=== PATIENT | female | born 1965 | race Caucasian/White ===

== ENCOUNTER 2023-03-20 21:56 | Emergency (ER) | payer MEDICARE, OTHER ==
[2023-03-20] MEDS ORDERED: Sodium Chloride 0.9% 1,000 ML IV ONE (22:21)
[2023-03-20] MEDS ORDERED: Sodium Chloride 0.9% 10 ML Syringe FLUSH PRN (22:21)
[2023-03-20] MEDS ORDERED: Iopamidol 612 MG/ML 100 ML Bottle IVPUSH ONE (22:25)
[2023-03-20] MEDS ORDERED: Iopamidol 755 Mg/ML 100 ML Bottle IVPUSH ONE (22:28)
[2023-03-20] MEDS ORDERED: Sodium Chloride 0.9% 100 ML IV SCH (22:30)
[2023-03-20] MEDS ORDERED: Iopamidol 755 MG/ML 50 ML Bottle IVPUSH ONE (22:30)
[2023-03-20] MEDS ORDERED: Cefepime 2 GM in Sodium Chloride 0.9% 50 ML IV ONE (22:51)
[2023-03-20] MEDS ORDERED: Piperacillin/Tazobactam 3.375 GM in Sodium Chloride 0.9% 100 ML IV ONE (22:53)
[2023-03-20] MEDS ORDERED: Morphine 4 MG/ML Syringe IVPUSH ONE (22:56)
[2023-03-20] MEDS ORDERED: Ondansetron 4 MG/2 ML SDV IVPUSH ONE (22:56)
[2023-03-20 23:04] LABS: HEMATOCRIT 43.7 % (37.0-47.0); HEMOGLOBIN 14.7 gm/dl (12.0-16.0); MEAN CORPUSCULAR HEMOGLOBIN 32.2 pg (28.0-32.0); MEAN CORPUSCULAR HGB CONC 33.6 g/dl (32.0-36.0); MEAN CORPUSCULAR VOLUME 95.6 fl (83.0-99.0); MEAN PLATELET VOLUME 9.6 fl (9.4-12.3); PLATELET COUNT,PLT 246 K/mm3 (150-400); RED BLOOD CELL COUNT 4.57 M/mm3 (4.10-5.30)
[2023-03-20 23:24] LABS: INR 0.97; PROTHROMBIN TIME 10.4 SECONDS (9.7-12.0)
[2023-03-20 23:25] LABS: BAND PERCENT MAN 0 % (0-10); BASOPHILS PERCENT MAN 0 (0.1-1.2); EOSINOPHILS PERCENT MAN 0 % (0.7-5.8); LYMPHOCYTES % ATYPICAL MANUAL 0 %; LYMPHOCYTES PERCENT MAN 28 % (20-40); MONOCYTES PERCENT MAN 3 % (2-10)
[2023-03-20 23:26] LABS: PLATELET COUNT ESTIMATE ADEQUATE
[2023-03-20 23:27] LABS: A/G RATIO 0.6 (1-2); ALANINE AMINOTRANSFERASE,ALT 18 U/L (14-59); ALBUMIN 2.8 g/dl (3.4-5.0); ALKALINE PHOSPHATASE 103 U/L (46-116); ASPARTATE AMNIOTRANSFERASE,AST 21 U/L (15-37); BILIRUBIN TOTAL 0.3 mg/dL (0.2-1.0); BLOOD UREA NITROGEN,BUN 12 mg/dL (7-18); BUN/CREATININE RATIO 17.1 (14-18); C-REACTIVE PROTEIN 1.2 mg/dL (<1.0); CALCIUM 9.1 mg/dL (8.5-10.1); CARBON DIOXIDE,CO2 25 mEq/L (21-32); CHLORIDE,CL 102 mEq/L (98-107); CREATININE 0.7 mg/dL (0.55-1.02); ESTIMATED GFR 100 mL/min (>60); GLUCOSE RANDOM 110 mg/dL (70-99); PROTEIN TOTAL,TP 7.5 g/dl (6.4-8.2); SODIUM,NA 137 mEq/L (136-145)
[2023-03-20 23:29] LABS: LACTIC ACID 0.6 mmol/L (0.4-2.0)
[2023-03-20] MEDS ORDERED: Sodium Chloride 0.9% 1,000 ML ONE (23:47)
[2023-03-21] MEDS ORDERED: Morphine 4 MG/ML Syringe IVPUSH ONE (01:40)
[2023-03-21] MEDS ORDERED: LORazepam 2 MG/ML SDV IVPUSH ONE (02:03)
[2023-03-21 02:42] LABS: CORONAVIRUS COVID-19 NAA NEGATIVE (NEGATIVE); INFLUENZA A NAA NEGATIVE (NEGATIVE); RESPIRATORY SYNCYTIAL VIR NAA NEGATIVE (NEGATIVE)
== END 2023-03-21 02:21 ==
LOC: JD.ED 21:56
DX: A48.0 Gas gangrene (principal); I70.90 Unspecified atherosclerosis; F17.200 Nicotine dependence, unspecified, uncomplicated; Z79.899 Other long term (current) drug therapy
CPT/HCPCS: 0241U; 36415; 73620-26-LT; 73620-LT; 73706-26-LT; 73706-LT; 80053; 83605; 85007; 85027; 85610; 85652; 86140; 87040; 96365; 96367; 96375; 96376; 99284; 99285-25; J2060; J2270; J2405; J2543; J3370; J3490; J7030; J7050; Q9967